=== PATIENT | female | born 1995 | race Caucasian/White ===

== ENCOUNTER → 2016-09-11 18:12 | Observation (INO) ==
[2016-09-10 19:32] LABS: Bilirubin,Urine Negative (Negative); Blood,Urine Negative (Negative); Clarity,Urine Cloudy (Clear); Color,Urine Yellow (Yellow); Glucose,Urine (UA) Normal (Normal); Ketones,Urine Negative (Negative); Leukocyte Esterase,Urine Moderate (Negative); Nitrite,Urine Negative (Negative); Protein,Urine Negative (Neg-Trace); Specific Gravity,Urine 1.014 (1.010-1.025); Urobilinogen,Urine Normal (Normal)
[2016-09-10 19:35] LABS: Bacteria,Urine None Seen per hpf (None-Few); Hyaline Casts,Urine None Seen per lpf (None-Few); RBC,Urine 0-3 per hpf (0-3); Squamous Epithelial Cell,Urine Many per lpf (None-Few)
--- NOTE | 2016-09-10 22:40 | OB/GYN History & Physical ---
Date of Encounter: 09/10/16 Time of Encounter: 22:26 Assessment and Plan (1) uterine contractions in third trimester, antepartum Current visit: Yes Status: Acute Pt initially presented at 3cm and after 3 hours, repeat exam /-1. Plan to observe. Will admit if she continues to make cervical change. Will consider therapeutic rest. Dispo pending repeat cervical exam. GBS collected. (2) 35 weeks gestation of Current visit: Yes Status: Acute History of Present Illness Chief complaint: contractions HPI: Ms. Florez is a 21 year old female presenting at 35w4d with c/o lower back and abdominal pain. She denies LOF or VB. Good FM. No vaginal discharge or urinary sx. No other complaints. She has a history of delivery at 36 weeks, tobacco use, and THC use as well as short interval between pregnancies. There was also a subchorionic hematoma noted in early . Blood type A positive, rubella non-immune, serologies negative. GBS unknown. Past Med Surg Social Fam HX - Past Medical History Medical history: fibromyalgia, thyroid disease Psychiatric history: anxiety, bipolar, depression - Past Surgical History Surgical History: no surgical history - Social History Smoking Status: Current every day smoker Smokeless Tobacco Status: Yes Alcohol use: none Drug use: none, marijuana - Family History Mother Adopted: Yes Living Status: Still Living Obstetrical History - Pregnancies : 3 Para: 1 : 1 Ab's: 1 Livin Medications and Allergies Vit/FA 1 tab PO DAILY 03/13/15 [History] Allergies No Known Allergies Allergy (Verified 09/24/15 12:06) Review of System OB All systems PM: reviewed and no additional remarkable complaints except as stated Exam - Constitutional Constitutional: well developed, well nourished, no acute distress - HEENT HEENT: Mucus Membranes Moist - Lungs Respiratory exam: CTAB - Cardiovascular Cardiovascular exam: RRR, +S1, +S2 - Abdomen Abdomen: Present: gravid, non tender - Extremities Extremities exam: normal inspection Deep Tendon Reflex Grade: 2+ Normal - Vulva Vulva: bilateral: normal - Vagina Vagina: Present: normal moisture - Cervix Dilation: 4 Effacement: 80 Station: -2 - Adnexa Adnexa: bilateral: normal - Anus/Rectum Anus/Rectum: Present: normal perianal skin Results Abnormal lab results Urine Clarity Cloudy (Clear) A 09/10/16 Unknown Ur Leukocyte Esterase Moderate (Negative) H 09/10/16 Unknown Urine Microscopic WBC 5-15 per hpf (0-3) H 09/10/16 Unknown Ur Squamous Epith Cells Many per lpf (None-Few) H 09/10/16 Unknown Ur Culture Indicated? YES (NO) A 09/10/16 Unknown All other labs normal. - VTE Reasons for not Prescribing Prophylaxis: Treatment not Indicated - Low risk for VTE
--- NOTE | 2016-09-11 17:39 | Discharge Summary ---
Date of Encounter: 09/11/16 Time of Encounter: 17:40 - Discharge Diagnosis (1) uterine contractions in third trimester, antepartum Priority: Primary Status: Acute Comments: Pt was observed all day. Slight cervical change now 5/80/+1 on exam. Walked for 2 hours with no change. tracing remains reactive. Pt lives 15 [address]. Discussed with Dr. Pruitt. Will discharge. With detailed discussion to patient to return if any change in condition, contractions, movement or pain level discussed with patient and . Also will give Rx for Ambien. (2) 35 weeks gestation of Priority: Primary Status: Acute - Discharge Medications Home Medications: Vit/FA 1 tab PO DAILY 03/13/15 [History] Zolpidem [Ambien] 5 mg PO HS #2 tablet 09/11/16 [Rx] Allergies/Adverse Reactions: Allergies No Known Allergies Allergy (Verified 09/24/15 12:06) Data Procedures and tests throughout hospitalization: Laboratory Tests 09/10/16 Unknown Urine Color Yellow Urine Clarity Cloudy A Urine pH 7.0 Ur Specific [place] 1.014 Urine Protein Negative Urine Glucose (UA) Normal Urine Ketones Negative Urine Blood Negative Urine Nitrite Negative Urine Bilirubin Negative Urine Urobilinogen Normal Ur Leukocyte Esterase Moderate H Urine Microscopic RBC 0-3 Urine Microscopic WBC 5-15 H Ur Squamous Epith Cells Many H Urine Bacteria None Seen Hyaline Casts None Seen Ur Culture Indicated? YES A Labs on day of discharge: Labs from last 24 hours 09/10/16 Unknown Urine Color Yellow Urine Clarity Cloudy A Urine pH 7.0 Ur Specific [place] 1.014 Urine Protein Negative Urine Glucose (UA) Normal Urine Ketones Negative Urine Blood Negative Urine Nitrite Negative Urine Bilirubin Negative Urine Urobilinogen Normal Ur Leukocyte Esterase Moderate H Urine Microscopic RBC 0-3 Urine Microscopic WBC 5-15 H Ur Squamous Epith Cells Many H Urine Bacteria None Seen Hyaline Casts None Seen Ur Culture Indicated? 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 - Extremities Exam Extremities exam IM: Present: normal capillary refill, normal inspection - Neurological Exam Neurological exam: normal gait, oriented X3 - VTE Reasons for not Prescribing Prophylaxis: Treatment not Indicated - Low risk for VTE
[~2016-09-11 18:12] MED LIST: *HR* Morphine 10 MG/ML VIAL SQ ONE; *HR* Morphine 2 MG/ML SYRINGE SQ ONE; Betamethasone Acet/SodPhos 6 MG/ML MDV IM SCH
== END | disposition home or self-care (01) ==
LOC: 1NENULAB
PROVIDERS: ADMIT Obstetrics & Gynecology; ATTEND Obstetrics & Gynecology

== ENCOUNTER 2016-09-12 02:19 | Inpatient (IN) ==
--- NOTE | 2016-09-12 02:03 | OB/GYN History & Physical ---
Date of Encounter: 09/12/16 Time of Encounter: 02:01 Assessment and Plan (1) 35 weeks gestation of Current visit: Yes Status: Acute (2) uterine contractions in third trimester, antepartum Current visit: Yes Status: Acute Pt presents with stronger and more intense contractions and earlier, but cervix remained unchanged. Due to patient's advanced cervical dilation and new contraction pattern will monitor for the next 2-3 hours and reevaluate for cervical change. If cervical change present will start GBS prophylaxis as patient is GBS unknown at this History of Present Illness Chief complaint: Contractions HPI: Ms. Florez is a 21 year old female here with complaints of increased intensity of contractions. Pt was discharged for triage yesterday evening, went home took Ambien rx and slept until contractions woke her up at 0100. Pt states contraction pain is now in her abdomen instead of her back. endorses good movement, denies leaking of fluid or vaginal bleeding. is complicated by SGA last EFW on 08/18 4lbs and short interval between pregnancies. Labs: A+, Rubella non-immune, GBS unknown and serologies are negative. Past Med Surg Social Fam HX - Past Medical History Medical history: fibromyalgia, thyroid disease Psychiatric history: anxiety, bipolar, depression - Past Surgical History Surgical History: no surgical history - Social History Smoking Status: Current every day smoker Smokeless Tobacco Status: Yes Alcohol use: none Drug use: none, marijuana - Family History Mother Adopted: Yes Living Status: Still Living Obstetrical History - Pregnancies : 2 Para: 1 Term: 0 : 1 Ab's: 0 Livin Medications and Allergies Vit/FA 1 tab PO DAILY 03/13/15 [History] Zolpidem [Ambien] 5 mg PO HS #2 tablet 09/11/16 [Rx] Allergies No Known Allergies Allergy (Verified 09/24/15 12:06) Review of System OB All systems PM: reviewed and no additional remarkable complaints except as stated Exam - Constitutional Constitutional: well developed, well nourished, no acute distress - Neck Neck exam: full ROM - Lungs Respiratory exam: CTAB - Cardiovascular Cardiovascular exam: RRR, +S1, +S2 - Breasts Breast: bilateral: normal - Abdomen Abdomen: Present: bowel sounds normal, gravid, non tender - Extremities Extremities exam: normal capillary refill, normal inspection - Vulva Vulva: bilateral: normal - Vagina Vagina: Present: normal moisture - Cervix Dilation: 5 Effacement: 80 Station: +1 - Uterus Uterus exam: Present: normal size, normal contour - Anus/Rectum Anus/Rectum: Present: normal perianal skin Results All other labs normal.
[~2016-09-12 02:19] MED LIST changes: -*HR* Morphine 10 MG/ML VIAL SQ ONE; -*HR* Morphine 2 MG/ML SYRINGE SQ ONE; -Betamethasone Acet/SodPhos 6 MG/ML MDV IM SCH; +Famotidine 20 MG/2 ML VIAL IVP PRN
[2016-09-12] MEDS ORDERED: Penicillin G Potassium 5,000,000 UNIT in D5% in Water (Mini-Bag+) 100 ML IVPB ONE (02:25)
[2016-09-12 02:28] VITALS: BP 112/68
[2016-09-12] MEDS ORDERED: Ringers Solution, Lactated 1,000 ML IVC SCH (02:30)
[2016-09-12] MEDS ORDERED: Naloxone 0.4 MG/ML INJ IVP SCH (02:30)
[2016-09-12 04:05] LABS: Basophils % 0.1 %; Hematocrit 28.6 % (35.3-44.9); Hemoglobin 9.5 g/dL (11.5-15.4); Immature Granulocytes % 0.8 % (0-4); Lymphocytes # 1.9 K/mcL (0.6-4.6); Lymphocytes % 10.8 %; Mean Corpuscular HGB Conc 33.2 g/dL (31.6-35.5); Mean Corpuscular Hemoglobin 28.9 pg (28.0-33.3); Mean Corpuscular Volume 86.9 fL (83.0-100.0); Mean Platelet Volume 10.5 fL (9.4-12.4); Monocytes # 0.7 K/mcL (0.0-1.3); Monocytes % 4.1 %; Neutrophils # 15.1 K/mcL (1.6-8.9); Platelet Count 365 K/mcL (140-400); Red Blood Count 3.29 M/mcL (3.82-4.97); Red Cell Distribution Width 12.1 % (11.5-14.5); Segmented Neutrophils % 84.2 %
--- NOTE | 2016-09-12 06:36 | Discharge Summary ---
Date of Encounter: 09/12/16 Time of Encounter: 06:33 - Discharge Diagnosis (1) 35 weeks gestation of Priority: Primary Status: Acute (2) uterine contractions in third trimester, antepartum Priority: Primary Status: Acute Comments: Cervical exam remains unchanged. Discussed patient with Dr. Pruitt plan to discharge patient if agreeable. Lengthy discussion with patient and about when to return: rupture of membranes, stronger more intense contractions, urged patient not to wait to return if she feels labor is stronger and more intense due to her advanced cervical dilation and infant. Patient and in agreement with plan verbalized understanding. Patient understandably stressed and upset about no cervical change but understands plan and in agreement - Discharge Medications Home Medications: Vit/FA 1 tab PO DAILY 03/13/15 [History] Zolpidem [Ambien] 5 mg PO HS #2 tablet 09/11/16 [Rx] Allergies/Adverse Reactions: Allergies No Known Allergies Allergy (Verified 09/24/15 12:06) Data Procedures and tests throughout hospitalization: Laboratory Tests 09/12/16 03:30 WBC 18.0 H RBC 3.29 L Hgb 9.5 L Hct 28.6 L MCV 86.9 MCH 28.9 MCHC 33.2 RDW 12.1 Plt Count 365 MPV 10.5 Immature Gran % 0.8 Seg Neutrophils % 84.2 Lymphocytes % 10.8 Monocytes % 4.1 Eosinophils % 0.0 Basophils % 0.1 Neutrophils # 15.1 H Lymphocytes # 1.9 Monocytes # 0.7 Eosinophils # 0.0 Basophils # 0.0 Labs on day of discharge: Labs from last 24 hours 09/12/16 03:30 WBC 18.0 H RBC 3.29 L Hgb 9.5 L Hct 28.6 L MCV 86.9 MCH 28.9 MCHC 33.2 RDW 12.1 Plt Count 365 MPV 10.5 Immature Gran % 0.8 Seg Neutrophils % 84.2 Lymphocytes % 10.8 Monocytes % 4.1 Eosinophils % 0.0 Basophils % 0.1 Neutrophils # 15.1 H Lymphocytes # 1.9 Monocytes # 0.7 Eosinophils # 0.0 Basophils # 0.0 Date of admission: 09/12/16 02:19 Discharging clinician: Hina Ybarra Anticipated date of discharge: 09/12/16 - Patient Status Disposition: Home, Self-Care Condition: Good Overall status at discharge: patient is back to baseline - Discharge Instructions Additional Instructions: LABOR AND DELIVERY DISCHARGE INSTRUCTIONS Signs and Symptoms to be Reported to your Doctor Immediately: * Sudden gush, continuous or intermittent lead of fluid from vagina (note the time of gush and color of fluid) * Onset of bright red vaginal bleeding with or without pain (if you had a vaginal exam during this visit you may notice some dark red spotting. This is normal.) * Lower abdominal cramping or backache that is premenstrual-like feeling. * More than 6 contractions in one hour. * Burning during urination, having to urinate more frequently or pain in your mid-back. * A change in the baby's activity. This could be an increase or decrease in activity. * Severe headache which does not go away with tylenol. * Sudden swelling in the face, hands, arms and/or legs. * Upper abdominal pain - sometimes associated with heartburn or nausea and is not relieved by Maalox, Mylanta or Tums. * Dizziness or blurred vision or visual disturbances (seeing stars/lights). * Kick Counts One hour after a meal, lay down on one side in a quiet place. Count the number of kirti the baby moves during an hour. If less than 6 movements, notify your physician. Diet: *Force fluids - 8-10 tall glasses of fluid per day. May include popsicles and jello. 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 Pt remains unchanged from last VE. - VTE Reasons for not Prescribing Prophylaxis: Medical contraindication
== END 2016-09-12 06:31 | disposition home or self-care (01) | DRG 778 ==
LOC: 1NENULAB
PROVIDERS: ADMIT Obstetrics & Gynecology; ATTEND Obstetrics & Gynecology

== ENCOUNTER → 2016-09-12 22:40 | Observation (INO) ==
--- NOTE | 2016-09-12 22:33 | Discharge Summary ---
Date of Encounter: 09/12/16 Time of Encounter: 22:32 - Discharge Diagnosis (1) 35 weeks gestation of Priority: Primary Status: Acute (2) uterine contractions in third trimester, antepartum Priority: Primary Status: Acute Comments: Patient presents with increased contraction and vaginal pressure denies vaginal bleeding or leaking of fluid and endorses good movement. Initial vaginal exam remained the same at 5/80/+1. Patient walked for 2 hours vaginal exam checked did make slight cervical change to 5-1/2/ 80/+1 with bulging bag of norris into cervical os. His cost options with patient's of remaining in hospital and watching and observing versus going home: Patient states prefers to go home at this time. Educated patient and about when to return to hospital: Rupture of membranes, increased contractions or vaginal pressure. Patient discussed with Dr. Frias will discharge to home at this time (3) NST (non-stress test) reactive Priority: Primary Status: Acute Comments: reactive NST x2 baseline 125 - Discharge Medications Home Medications: Vit/FA 1 tab PO DAILY 03/13/15 [History] Zolpidem [Ambien] 5 mg PO HS #2 tablet 09/11/16 [Rx] Allergies/Adverse Reactions: Allergies No Known Allergies Allergy (Verified 09/24/15 12:06) Date of admission: 09/12/16 19:13 Discharging clinician: Hina Ybarra Anticipated date of discharge: 09/12/16 - Patient Status Disposition: Home, Self-Care Condition: Good Functional capacity at discharge: independent ambulation Overall status at discharge: patient is back to baseline - Discharge Instructions - Diet and Activity Activity: resume usual activities as tolerated Diet: regular diet 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 - Extremities Exam Extremities exam IM: Present: normal capillary refill, normal inspection - Neurological Exam Neurological exam: normal gait, oriented X3 - VTE Reasons for not Prescribing Prophylaxis: Treatment not Indicated - Low risk for VTE
== END | disposition home or self-care (01) ==
LOC: 1NENULAB
PROVIDERS: ADMIT Obstetrics & Gynecology; ATTEND Obstetrics & Gynecology

== ENCOUNTER → 2016-09-14 16:01 | Observation (INO) ==
--- NOTE | 2016-09-14 15:58 | Discharge Summary ---
Date of Encounter: 09/14/16 Time of Encounter: 16:04 - Discharge Diagnosis (1) 36 weeks gestation of Priority: Primary Status: Acute (2) uterine contractions in third trimester, antepartum Priority: Primary Status: Acute Comments: Patient presents with complaints of increased contractions and vaginal pressure. Patient states she has felt some decreased movement but does feel a few kicks, NST is reactive and movement thought by provider Patient states she has also had increased bloody show denies overt vaginal bleeding and rupture of membranes. Vaginal exam same as previous, with exception of slight change in effacement /+1. Discussed options with patient of continuation of inpatient monitoring or discharge home, patient desires discharge home. Discussed when to return and labor precautions with patient and both vocalized understanding. NST reactive with baseline of 135 (3) NST (non-stress test) reactive Priority: Secondary Status: Acute Comments: Baseline 135 - Discharge Medications Home Medications: Vit/FA 1 tab PO DAILY 03/13/15 [History] Zolpidem [Ambien] 5 mg PO HS #2 tablet 09/11/16 [Rx] Allergies/Adverse Reactions: Allergies No Known Allergies Allergy (Verified 09/24/15 12:06) Date of admission: 09/14/16 14:56 Primary care physician: Nima Villegas MD - Patient Status Disposition: Home, Self-Care Condition: Good Functional capacity at discharge: independent ambulation Overall status at discharge: patient is back to baseline - Discharge Instructions Follow Up With: Hina Ybarra CNM [Advanced Practice Nurse] - - Diet and Activity Activity: resume usual activities as tolerated Diet: regular diet 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
== END | disposition home or self-care (01) ==
LOC: 1NENULAB
PROVIDERS: ADMIT Student in an Organized Health Care Education/Training Program; ATTEND Student in an Organized Health Care Education/Training Program

== ENCOUNTER 2016-09-15 09:24 | Inpatient (IN) ==
[2016-09-15] MEDS ORDERED: Metoclopramide 10 MG/2 ML VIAL IVP PRN (10:47)
[2016-09-15] MEDS ORDERED: Naloxone 0.4 MG/ML INJ IVP PRN (10:47)
[2016-09-15] MEDS ORDERED: Famotidine 20 MG/2 ML VIAL IVP PRN (10:47)
[2016-09-15] MEDS ORDERED: *HR* Nalbuphine 20 MG/ML AMPUL IVP PRN (10:47)
[2016-09-15] MEDS ORDERED: Ondansetron 4 MG/2 ML VIAL IVP PRN (10:47)
--- NOTE | 2016-09-15 10:51 | OB/GYN History & Physical ---
Date of Encounter: 09/15/16 Time of Encounter: 10:51 Assessment and Plan (1) labor in third trimester Current visit: Yes Status: Acute Admit for expectant management. SVE 6cm on admission and changed to 7cm on recheck. Will give Nubain for pain now. Epidural when requested. GBS negative. Anticipate . Qualifiers: labor delivery status: with delivery in third trimester Fetus number: single or unspecified fetus Qualified Code(s): O60.14X0 - labor third trimester with delivery third trimester, not applicable or unspecified (2) 36 weeks gestation of Current visit: No Status: Acute (3) NST (non-stress test) reactive Current visit: No Status: Acute (4) History of marijuana use Current visit: Yes Status: Acute Cordstat and SW consult after delivery. History of Present Illness Chief complaint: contractions HPI: Ms. Florez is a 21 year old female presenting at 36w2d with c/o lower back and abdominal pain. She reports her contractions woke her at 0300 this am and have gotten stronger and closer together since. She denies LOF or VB. Good FM. No vaginal discharge or urinary sx. No other complaints. She has a history of delivery at 36 weeks, tobacco use, and THC use as well as short interval between pregnancies. There was also a subchorionic hematoma noted in early . Blood type A positive, rubella non-immune, serologies negative. GBS collected in triage on 09/12 and was negative. Past Med Surg Social Fam HX - Past Medical History Medical history: fibromyalgia, thyroid disease Psychiatric history: anxiety, depression - Past Surgical History Surgical History: no surgical history - Social History Smoking Status: Former smoker Smokeless Tobacco Status: Yes Alcohol use: none Drug use: marijuana - Family History Mother Adopted: Yes Living Status: Still Living Hx Family Medical Disorders: Yes (Anemia) Obstetrical History - Pregnancies : 3 Medications and Allergies Vit/FA 1 tab PO DAILY 03/13/15 [History] Allergies No Known Allergies Allergy (Verified 09/15/16 09:53) Review of System OB All systems PM: reviewed and no additional remarkable complaints except as stated Exam - Constitutional Constitutional: well developed, well nourished, moderate distress - HEENT HEENT: Mucus Membranes Moist - Lungs Respiratory exam: CTAB - Cardiovascular Cardiovascular exam: RRR, +S1, +S2 - Abdomen Abdomen: Present: gravid, non tender - Extremities Extremities exam: normal inspection - Vulva Vulva: bilateral: normal - Vagina Vagina: Present: normal moisture - Cervix Dilation: 7 (6 on arrival) Effacement: 100 Station: +1 - Uterus Uterus exam: Present: normal size. Absent: tender - Anus/Rectum Anus/Rectum: Present: normal perianal skin Results All other labs normal. - VTE Reasons for not Prescribing Prophylaxis: Treatment not Indicated - Low risk for VTE
[2016-09-15] MEDS ORDERED: Ringers Solution, Lactated 1,000 ML IVC SCH (11:00)
[2016-09-15 11:08] LABS: Basophils % 0.2 %; Eosinophils % 0.3 %; Hematocrit 27.7 % (35.3-44.9); Hemoglobin 9.3 g/dL (11.5-15.4); Immature Granulocytes % 0.5 % (0-4); Lymphocytes # 3.4 K/mcL (0.6-4.6); Lymphocytes % 24.1 %; Mean Corpuscular HGB Conc 33.6 g/dL (31.6-35.5); Mean Corpuscular Hemoglobin 29.2 pg (28.0-33.3); Mean Corpuscular Volume 86.8 fL (83.0-100.0); Mean Platelet Volume 10.6 fL (9.4-12.4); Monocytes # 0.7 K/mcL (0.0-1.3); Monocytes % 4.8 %; Neutrophils # 9.8 K/mcL (1.6-8.9); Platelet Count 365 K/mcL (140-400); Red Blood Count 3.19 M/mcL (3.82-4.97); Red Cell Distribution Width 12.1 % (11.5-14.5); Segmented Neutrophils % 70.1 %
[2016-09-15] MEDS ORDERED: *HR* Nalbuphine 20 MG/ML AMPUL ONE (11:28)
--- NOTE | 2016-09-15 11:28 | Anesthesia Evaluation PreOp ---
Date of Encounter: 09/15/16 Time of Encounter: 11:24 - Past History Planned Operation: vaginal del, 36.2wks active labor Cardiac History: Denies any Significant Hx, Other (anemia) Other Medical History: Thyroid Anesthesia History: No Prior Anesthetic Complications, Past Anesthesia ( previous vaginal del with epidural, no family hx.) Alcohol Use: none Drug use: marijuana Medications and Allergies Vit/FA 1 tab PO DAILY 03/13/15 [History] Allergies No Known Allergies Allergy (Verified 09/15/16 09:53) Anesthesia Results - Labs 09/15/16 10:50 Anesthesia Exam - HEENT Pupil (Motor): Pupils equal Mallampati: III Teeth: Normal Oral Opening: Greater than 3 - POLYMER TESTER LOC: Oriented POLYMER TESTER Motor: Normal RUE, Normal LUE, Normal RLE, Normal LLE, Normal Face POLYMER TESTER Sensory: Normal: RUE, LUE, RLE, LLE, Face - Cardiac Rhythm: Regular Murmur: None - Pulmonary Breath Sounds: bilateral Clear Respiratory Effort: Symmetrical Anesthesia Assess/Plan ASA Score: 2 Modified [place] Scale for Level of Consciousness: Cooperative, oriented, and tranquil Anesthetic Plan: General, Regional Monitoring Plan: Standard Monitors
[2016-09-15] MEDS ORDERED: Epidural Premix (fent/bupiv) 110 ML EP ONE (11:31)
--- NOTE | 2016-09-15 13:19 | Anesthesia Procedures ---
Date of Encounter: 09/15/16 Time of Encounter: 12:44 Procedures: Anesthesia - Epidural/Spinal Patient ID/Chart reviewed: Yes Patient examined: Yes OB Eval: Gestational age: 37 OB Eval: : 2 OB Eval: Hx Para: 1 OB Eval: Dilated at (cm): 7 OB Eval: Contractions: Non-stressed pattern Consent Obtained: Yes Site Prep: Aseptic Technique, Sterile prep and drape, 0.5% Chlorhexidine/Alcohol Patient position: upright Local Anesthetic: Lidocaine 1% Amount of Local Anesthetic used: 2 Touhy Needle Gauge: 18 Touhy Needle Depth (cm): 7 Catheter Depth at Skin (cm): 11 Test Dose (1.5% Lido + Epi): Volume given (mls): 3 Test Dose Result: Negative Loading Dose: Other: 12 from solution Loading Dose Administered: Thru Catheter Infusion Med: 0.125% Bupivacaine w/ 2 mcg/ml Fentanyl Infusion Rate (mls/hr): [address]: Tegaderm, Tape Interspace Used: L3-L4 Loss of Resistance (PEGGY): Yes (saline) Blood: No CSF: No Paresthesia: No Procedure: vss though out, minor hypotension tx with tilt, IV bolus, 25 mcg jan, FHR stable per RN's
--- NOTE | 2016-09-15 13:40 | OB Labor Progress Note ---
Date of Encounter: 09/15/16 Time of Encounter: 13:20 Labor Progress Note - Subjective Subjective: Pt comfortable with epidural. - Cervix Cervix: 9/100/1 - Heart Tones Heart Tones: Category I - [place]: 3-3.5 minutes - Plan Plan: Continue to monitor. Anticipate .
--- NOTE | 2016-09-15 15:49 | OB Labor Progress Note ---
Date of Encounter: 09/15/16 Time of Encounter: 15:47 Labor Progress Note - Subjective Subjective: Pt comfortable with epidural. She does c/o some mild pressure. - Cervix Cervix: 9/100/1 - Heart Tones Heart Tones: Category I - [place]: 3-4 minutes - Interventions Interventions: AROM for moderate amount thick MSF. - Plan Plan: Continue to monitor. Anticipate . Plan for RT to attend delivery due to MSF.
[2016-09-15] MEDS ORDERED: Oxytocin 20 units/ LR 1000 mL 20 UNIT/1,000 ML BAG IVC ONE (16:05)
--- NOTE | 2016-09-15 20:14 | OB/GYN Procedure Note ---
Delivery - Delivery Date: 09/15/16 Provider: Lana Cartwright Intrapartum events: meconium Delivery induction: none Delivery augmentation: rupture of membranes Delivery monitor: external FHT, external uterine Anesthesia: intravenous, epidural Estimated Blood Loss: 100 - Infant (s) A Delivery Date: 09/15/16 Delivery Time: 19:11 Presentation: vertex Position: CEDRIC Route of delivery: Gender: Female Viability: Viable Pounds: 5 Ounces: 9 Weight Gram: 2520 kg at 1 minute: 8 at 5 mins: 9 Shoulder Dystocia: not encountered Specimens collected: cord blood Placenta: spontaneous - Repair Episiotomy: none Laceration Description: Labial, Superficial (superficial left labial hemostatic) - Complications Delivery complications: meconium - Disposition Mom disposition: stable in LDR disposition: stable in LDR - Comments Comments: 21 year-old presenting in active labor at 36w2d. She received an epidural and AROM was performed at 9cm. She underwent over intact perineum for viable female weighing 5lbs 9oz with apgars 8 and 9. After a 2 minute delay the cord was clamped and cut by the father. The placenta delivered spontaneous and intact. A superficial left labial laceration was noted to be hemostatic and was not repaired. EBL 100ml. Mother and baby stable in kangaroo care following delivery.
[2016-09-15] MEDS ORDERED: Acetaminophen 325 MG TABLET PO PRN (21:36)
[2016-09-15] MEDS ORDERED: Lanolin 28 GM TUBE TP PRN (21:36)
[2016-09-15] MEDS ORDERED: Oxytocin 20 units/ LR 1000 mL 20 UNIT/1,000 ML BAG IVC SCH (21:36)
[2016-09-15] MEDS ORDERED: Measles/Mumps/Rubella Vacc 0.5 ML VIAL SQ PRN (21:36)
[2016-09-15] MEDS ORDERED: Benzocaine/Menthol 56 GM AEROSOL SPRAY TP PRN (21:36)
[2016-09-16] MEDS: Ibuprofen 600 MG TABLET PO PRN ×3 (05:22→18:13)
--- NOTE | 2016-09-16 07:56 | Discharge Summary ---
Date of Encounter: 09/16/16 Time of Encounter: 07:54 - Discharge Diagnosis (1) Vaginal delivery Priority: Primary Status: Acute Comments: Pt states doing well. pain well managed on po medication. Pt desires discharge today if infant can DC with her. - Discharge Medications Prescriptions: Ibuprofen [Motrin] 600 mg PO Q6HR PRN #60 tablet PRN Reason: Cramping Docusate [Colace] 100 mg PO BID #60 capsule Ferrous Sulfate 325 mg PO DAILY #60 tablet Home Medications: Vit/FA 1 tab PO DAILY 03/13/15 [History] Acetaminophen [Tylenol] 650 mg PO Q6HR PRN #0 tablet 09/16/16 [Rx] Benzocaine/Menthol [place] [Dermoplast [place]] 1 appl TP QID PRN #0 aerosol [Rx] Docusate [Colace] 100 mg PO BID #60 capsule 09/16/16 [Rx] Ferrous Sulfate 325 mg PO DAILY #60 tablet 09/16/16 [Rx] Ibuprofen [Motrin] 600 mg PO Q6HR PRN #60 tablet 09/16/16 [Rx] Vit/FA 1 each PO DAILY tablet 09/16/16 [Rx] Allergies/Adverse Reactions: Allergies No Known Allergies Allergy (Verified 09/15/16 09:53) Data Procedures and tests throughout hospitalization: Laboratory Tests 09/15/16 10:50 WBC 14.0 H RBC 3.19 L Hgb 9.3 L Hct 27.7 L MCV 86.8 MCH 29.2 MCHC 33.6 RDW 12.1 Plt Count 365 MPV 10.6 Immature Gran % 0.5 Seg Neutrophils % 70.1 Lymphocytes % 24.1 Monocytes % 4.8 Eosinophils % 0.3 Basophils % 0.2 Neutrophils # 9.8 H Lymphocytes # 3.4 Monocytes # 0.7 Eosinophils # 0.0 Basophils # 0.0 Labs on day of discharge: Labs from last 24 hours 09/15/16 10:50 WBC 14.0 H RBC 3.19 L Hgb 9.3 L Hct 27.7 L MCV 86.8 MCH 29.2 MCHC 33.6 RDW 12.1 Plt Count 365 MPV 10.6 Immature Gran % 0.5 Seg Neutrophils % 70.1 Lymphocytes % 24.1 Monocytes % 4.8 Eosinophils % 0.3 Basophils % 0.2 Neutrophils # 9.8 H Lymphocytes # 3.4 Monocytes # 0.7 Eosinophils # 0.0 Basophils # 0.0 Date of admission: 09/15/16 09:24 Primary care physician: Nima Villegas MD Consults: 09/15/16 21:36 Consult to Eyeglass Lens Cutter [CONS] Routine Comment: Vaginal delivery, consult needed Consult to Sheep Boner [CONS] Routine Reason for SW Consult: history of marijuana use Discharging clinician: Hina Ybarra Anticipated date of discharge: 09/16/16 - Patient Status Disposition: Home, Self-Care Condition: Good Functional capacity at discharge: independent ambulation Overall status at discharge: patient is back to baseline - Discharge Instructions Follow Up With: Nima Villegas MD [Primary Care Provider] - Lana Cartwright CNM [Non-Partnered Physician] - - Diet and Activity Activity: resume usual activities as tolerated Diet: regular diet Hospital Course Reason for admission: active labor, IUP - , labor Delivery: Episiotomy: none Laceration: other (labial) Other procedures: none complications: none Discharge diagnosis: delivery [place] baby: female Hospital course: Delivery - Delivery Date: 09/15/16 Provider: Lana Cartwright Intrapartum events: meconium Delivery induction: none Delivery augmentation: rupture of membranes Delivery monitor: external FHT, external uterine Anesthesia: intravenous, epidural Estimated Blood Loss: 100 - (s) A Delivery Date: 09/15/16 Infant Delivery Time: 19:11 Presentation: vertex Position: CEDRIC Route of delivery: Gender: Female Viability: Viable Pounds: 5 Ounces: 9 Weight Gram: 2520 kg at 1 minute: 8 at 5 mins: 9 Shoulder Dystocia: not encountered Specimens collected: cord blood Placenta: spontaneous - Repair Episiotomy: none Laceration Description: Labial, Superficial (superficial left labial hemostatic) - Complications Delivery complications: meconium - Disposition Mom disposition: stable in PP and appropriate for discharge. Time Attestation: Total time spent providing and/or coordinating discharge services: Time Spent: Less than 30 minutes Exam - Constitutional Vitals: Temp Pulse Resp BP Pulse Ox 98.2 F 66 16 102/65 97 09/16/16 05:20 09/16/16 05:20 09/16/16 05:20 09/16/16 05:20 09/16/16 05:20 General appearance IM: A&O X 3, pleasant - Respiratory Respiratory exam: Present: CTAB - Cardiovascular Cardiovascular exam IM: Present: RRR, +S1, +S2 - GI/Abdominal GI/Abdominal exam IM: normal bowel sounds, soft - Uterine Tone: Firm Uterus Position: Midline - Extremities Exam Extremities exam IM: Present: normal capillary refill, normal inspection - Neurological Exam Neurological exam: normal gait, oriented X3 - Psychiatric Additional comments: reports good mood.
[2016-09-16] MEDS ORDERED: Prenatal Vit/FA 1 EACH TABLET PO SCH (09:00)
[2016-09-16 16:31] VITALS: BP 102/63
== END 2016-09-16 20:50 | disposition home or self-care (01) | DRG 774 ==
LOC: 1NENULAB → OBSVTOIN 09:24 → 1NENUOBS 21:55
PROVIDERS: ADMIT Obstetrics & Gynecology; ATTEND Obstetrics & Gynecology

== ENCOUNTER 2020-02-10 12:16 | Observation (INO) ==
[2020-02-10 13:11] LABS: Bilirubin,Urine Negative (Negative); Blood,Urine Negative (Negative); Clarity,Urine Clear (Clear); Color,Urine Colorless (Yellow); Glucose,Urine (UA) Normal (Normal); Ketones,Urine Negative (Negative); Leukocyte Esterase,Urine Negative (Negative); Nitrite,Urine Negative (Negative); Protein,Urine Negative (Neg-Trace); Specific Gravity,Urine 1.009 (1.010-1.025); Urobilinogen,Urine Normal (Normal)
[2020-02-10 13:12] LABS: Basophils % 0.5 %; Eosinophils # 0.2 K/mcL (0.0-0.6); Eosinophils % 2.7 %; Hematocrit 40.9 % (35.3-44.9); Hemoglobin 13.2 g/dL (11.5-15.4); Immature Granulocytes % 0.1 % (0-4); Lymphocytes # 2.4 K/mcL (0.6-4.6); Lymphocytes % 28.2 %; Mean Corpuscular HGB Conc 32.3 g/dL (31.6-35.5); Mean Corpuscular Hemoglobin 30.1 pg (28.0-33.3); Mean Corpuscular Volume 93.2 fL (83.0-100.0); Mean Platelet Volume 9.5 fL (9.4-12.4); Monocytes # 0.5 K/mcL (0.0-1.3); Monocytes % 5.5 %; Neutrophils # 5.4 K/mcL (1.6-8.9); Platelet Count 369 K/mcL (140-400); Red Blood Count 4.39 M/mcL (3.82-4.97); Red Cell Distribution Width 12.4 % (11.5-14.5); White Blood Count 8.6 K/mcL (4.3-11.1)
[2020-02-10 13:30] LABS: Alanine Aminotransferase 7 Units/L (7-52); Albumin 4.6 g/dL (3.5-5.7); Albumin/Globulin Ratio 2.1 (1.1-2.2); Alkaline Phosphatase 36 Units/L (34-104); Aspartate Amino Transferase 12 Units/L (13-39); BUN/Creatinine Ratio 14 (6-26); Bilirubin,Total 0.4 mg/dL (0.3-1.0); Blood Urea Nitrogen 10 mg/dL (6-20); Carbon Dioxide 27 mEq/L (23-29); Chloride 104 mEq/L (98-107); Globulin 2.2 g/dL (2.4-3.5); Glucose 80 mg/dL (70-105); Magnesium 1.9 mg/dL (1.6-2.6); Osmolality,Calculated 282 (280-300); Phosphorous 3.4 mg/dL (2.7-4.5); Potassium 4.1 mEq/L (3.5-5.1); Sodium 137 mEq/L (136-145); Total Protein 6.8 g/dL (6.4-8.9); eGFR For African Americans > 60 (> 60); eGFR For Non-African Americans > 60 (> 60)
[2020-02-10 13:32] LABS: Troponin I < 0.03 ng/mL (< 0.04)
[2020-02-10 13:54] LABS: Folate 15.9 ng/mL (3.0-16.0)
[2020-02-10] MEDS ORDERED: Ondansetron 4 MG/2 ML VIAL IVP PRN (14:54)
[2020-02-10] MEDS ORDERED: Naloxone 0.4 MG/ML INJ IVP PRN (14:54)
[2020-02-10] MEDS ORDERED: Gadolinium Contrast Agent (WT Based) IV PRN (14:57)
[2020-02-10] MEDS: Nicotine 21 MG PATCH.TD24 TD SCH (16:01)
[2020-02-11 05:23] LABS: Basophils % 0.4 %; Eosinophils # 0.3 K/mcL (0.0-0.6); Hematocrit 39.1 % (35.3-44.9); Hemoglobin 12.5 g/dL (11.5-15.4); Immature Granulocytes % 0.2 % (0-4); Lymphocytes # 2.8 K/mcL (0.6-4.6); Lymphocytes % 32.7 %; Mean Corpuscular Hemoglobin 29.6 pg (28.0-33.3); Mean Corpuscular Volume 92.4 fL (83.0-100.0); Mean Platelet Volume 9.5 fL (9.4-12.4); Monocytes # 0.6 K/mcL (0.0-1.3); Monocytes % 6.9 %; Neutrophils # 4.8 K/mcL (1.6-8.9); Platelet Count 346 K/mcL (140-400); Red Blood Count 4.23 M/mcL (3.82-4.97); Red Cell Distribution Width 12.4 % (11.5-14.5); Segmented Neutrophils % 55.8 %; White Blood Count 8.6 K/mcL (4.3-11.1)
[2020-02-11 05:40] LABS: BUN/Creatinine Ratio 17 (6-26); Blood Urea Nitrogen 14 mg/dL (6-20); Calcium 9.7 mg/dL (8.6-10.3); Carbon Dioxide 26 mEq/L (23-29); Chloride 105 mEq/L (98-107); Glucose 100 mg/dL (70-105); Osmolality,Calculated 285 (280-300); Potassium 4.3 mEq/L (3.5-5.1); Sodium 137 mEq/L (136-145); eGFR For African Americans > 60 (> 60); eGFR For Non-African Americans > 60 (> 60)
[2020-02-11] MEDS: Nicotine 21 MG PATCH.TD24 TD SCH (08:18)
[2020-02-11] MEDS ORDERED: BuPROPion XL (24 HR) 150 MG TABLET PO SCH ×2 (09:00→10:00)
[2020-02-11] MEDS ORDERED: lamoTRIgine 100 MG TABLET PO SCH ×2 (09:00→14:00)
[2020-02-11] MEDS ORDERED: *HR* LORazepam 1 MG TABLET PO ONE (15:55)
[2020-02-11 20:09] VITALS: BP 119/82
== END 2020-02-11 21:35 | disposition left against medical advice (07) ==
LOC: 3BNU 12:16 → EMEROOARM 12:16 → SUATTDRO 14:36 → 3BNU 15:27
PROVIDERS: ADMIT Internal Medicine; ATTEND Internal Medicine